=== PATIENT | female | born 1960 | race Caucasian/White ===

== ENCOUNTER → 2021-10-19 | Outpatient (CLI) | payer BC ==
--- NOTE | 2021-10-20 09:39 | MM ---
Reason for exam: screening (asymptomatic). Last mammogram was performed 1 year and 2 months ago. History: Patient is postmenopausal. Physical Findings: A clinical breast exam by your physician is recommended on an annual basis and results should be correlated with mammographic findings. MG 3D Screening Mammo W/Cad Bilateral CC and MLO view(s) were taken. Prior study comparison: August 30, 2020, mammogram, performed at [place]. August 22, 2019, mammogram, performed at [place]. Stable calcifications in the left breast. No significant changes when compared with prior studies. ASSESSMENT: Benign, BI-RAD 2 RECOMMENDATION: Routine screening mammogram of both breasts in 1 year.
== END | disposition home or self-care (01) ==
LOC: RADMAMWWP 08:53
PROVIDERS: ATTEND Family Medicine
DX: Z12.31 Encounter for screening mammogram for malignant neoplasm of breast (principal); Z78.0 Asymptomatic menopausal state
CPT/HCPCS: 77063; 77067

== ENCOUNTER 2022-08-08 14:34 | Inpatient (IN) | payer BC ==
[2022-08-08 15:18] LABS: Appearance,Urine Clear (Clear); Bilirubin,Urine Negative (Negative); Blood,Urine Small (Negative); Color,Urine Colorless; Glucose,Urine (UA) Negative (Negative); Ketones,Urine Negative (Negative); Leukocyte Esterase,Urine Small (Negative); Nitrite,Urine Negative (Negative); Protein,Urine Negative (Negative); RBC,Urine 1 /hpf (0-5); Specific Gravity,Urine 1.002 (1.001-1.035); Squamous Epithelial Cell,Urine 1 /hpf (0-4); Urobilinogen,Urine <2.0 mg/dL (<2.0); WBC,Urine 4 /hpf (0-5)
[2022-08-08 15:24] LABS: HCT 36.9 % (34.0-46.0); HGB 13.3 gm/dL (11.4-16.0); MCH 30.9 pg (25.0-35.0); MCHC 35.9 g/dL (31.0-37.0); Mean Platelet Volume 7.6; Platelet Count 249 k/uL (150-450); RBC 4.29 m/uL (3.80-5.40); RDW 11.7 % (11.5-15.5); WBC 6.6 k/uL (3.8-10.6)
[2022-08-08 15:27] LABS: ALT 22 U/L (4-34); AST 26 U/L (14-36); African American GFR (CKD) >90 (>60 ml/min/1.73 sqM); Albumin 4.6 g/dL (3.5-5.0); Alkaline Phosphatase 78 U/L (38-126); Amylase 41 U/L (30-110); Anion Gap 8 mmol/L; Blood Urea Nitrogen 9 mg/dL (7-17); Calcium 9.3 mg/dL (8.4-10.2); Carbon Dioxide 31 mmol/L (22-30); Chloride 100 mmol/L (98-107); Glucose 119 mg/dL (74-99); Lipase 46 U/L (23-300); Non-African American GFR(CKD) >90 (>60 ml/min/1.73 sqM); Potassium 4.4 mmol/L (3.5-5.1); Sodium 139 mmol/L (137-145); Total Bilirubin 0.9 mg/dL (0.2-1.3); Total Protein 7.7 g/dL (6.3-8.2)
[2022-08-08 15:37] LABS: Basophils # (M) 0.07 k/uL (0-0.2); Eosinophils # (M) 0.13 k/uL (0-0.7); Lymphocytes # (M) 1.65 k/uL (1.0-4.8); Monocytes # (M) 0.46 k/uL (0-1.0); Neutrophils # (M) 4.29 k/uL (1.3-7.7); Neutrophils % (M) 65 %; Nucleated Red Blood Cells 0 /100 WBC (0-0); Total Cells Counted 100
[2022-08-08] MEDS ORDERED: SODIUM CHLORIDE 0.9% 1,000 ML IV STA (17:22)
[2022-08-08] MEDS ORDERED: KETOROLAC 15 MG/ML 1 ML VIAL IVP STA (17:26)
[2022-08-08] MEDS ORDERED: ONDANSETRON 4 MG/2 ML VIAL IVP STA (17:28)
--- NOTE | 2022-08-08 18:51 | CT ---
EXAMINATION TYPE: CT abdomen pelvis w con DATE OF EXAM: 08/08/2022 COMPARISON: None HISTORY: RLQ pain, fever CT DLP: 894.6 mGycm Automated exposure control for dose reduction was used. CONTRAST: Performed with IV Contrast, patient injected with 100ML mL of Isovue 370. Images obtained from the diaphragm to the floor the pelvis with the IV contrast. The lung bases show some mild atelectasis. Heart is slightly enlarged. There is small pericardial eff usion. There are scattered cysts in the liver that measure up to 1.5 cm. There are clips from cholecystectom y. Spleen and stomach pancreas appear intact. The bile duct are not dilated. There is no adrenal mass. Kidneys show satisfactory contrast opacification. No hydronephrosis. Ureter s are not dilated. No retroperitoneal adenopathy. The bladder distends smoothly. No inguinal hernia. There is small amount of low-density fluid in the pelvis. There is some fat stranding in the right lo wer quadrant. There is possible extraluminal air associated with the fat stranding inferior to the ce cum. This could be a 1.5 cm abscess related to appendicitis. The lumbar vertebral appear intact. There is some spondylotic changes with L to 3 disc space narrowin g and vacuum disc. No compression fracture. The bony pelvis is intact. The hip joints are intact. IMPRESSION: Inflammatory changes in the right lower quadrant and I suspect appendicitis with rupture and abscess formation. Small amount of free fluid in the pelvis.
[2022-08-08] MEDS ORDERED: PIPERACILLIN-TAZOBACTAM 3.375 GM in SODIUM CHLORIDE 0.9% 100 ML IVPB STA (18:55)
[2022-08-08] MEDS ORDERED: ONDANSETRON 4 MG/2 ML VIAL IVP PRN ×2 (19:23→21:46)
[2022-08-08] MEDS ORDERED: NALOXONE 0.4 MG/ML 1 ML VIAL IV PRN (19:23)
[2022-08-08] MEDS ORDERED: ACETAMINOPHEN TAB 325 MG TAB PO PRN (19:23)
--- NOTE | 2022-08-08 19:26 | ED ---
Abdominal Pain HPI - General Chief Complaint: Abdominal Pain Stated Complaint: ABD Pain,Fever Time Seen by Provider: 08/08/22 16:23 Source: patient Mode of arrival: ambulatory Limitations: no limitations - History of Present Illness Initial Comments: Patient is a 61-year-old female with a past medical history of hypertension, hyperlipidemia, cholecystectomy, and hysterectomy who presents to the emergency department with a chief complaint abdominal pain. Patient states abdominal pain started in the right lower quadrant. There is no radiation. It is associated with nausea and lack of appetite. Patient states she just recently had the flu therefore she thought she was recovering from that illness. On Sunday she developed a low-grade fever at 99.0F which has been consistent. She denies vomiting, burning with urination, blood in urine, trouble urinating, diarrhea. Last bowel movement was this morning which patient states was normal, nonbloody. - Related Data Home Medications Medication Instructions Recorded Confirmed Atorvastatin Calcium [Lipitor] 80 mg PO HS 08/08/22 08/08/22 Levothyroxine Sodium [Synthroid] 88 mcg PO DAILY 08/08/22 08/08/22 Losartan Potassium [Cozaar] 25 mg PO DAILY 08/08/22 08/08/22 Propranolol HCl 80 mg PO DAILY 08/08/22 08/08/22 amLODIPine [Norvasc] 5 mg PO DAILY 08/08/22 08/08/22 Allergies Allergy/AdvReac Type Severity Reaction Status Date / Time Sulfa (Sulfonamide Allergy Rash/Hives Verified 08/08/22 19:31 Antibiotics) morphine AdvReac Nausea & Verified 08/08/22 19:31 Vomiting Review of Systems ROS Statement: Those systems with pertinent positive or pertinent negative responses have been documented in the HPI. ROS Other: All systems not noted in ROS Statement are negative. Past Medical History Past Medical History: Hyperlipidemia, Hypertension, Thyroid Disorder History of Any Multi-Drug Resistant Organisms: None Reported Past Surgical History: Cholecystectomy, Hysterectomy, Tonsillectomy Past Psychological History: No Psychological Hx Reported Smoking Status: Never smoker Past Alcohol Use History: Occasional Past Drug Use History: None Reported General Exam Limitations: no limitations General appearance: alert, in no apparent distress Eye exam: Present: normal appearance, PERRL, EOMI. Absent: scleral icterus, conjunctival injection, periorbital swelling Respiratory exam: Present: normal lung sounds bilaterally. Absent: respiratory distress, wheezes, rales, rhonchi, stridor Cardiovascular Exam: Present: regular rate, normal rhythm, normal heart sounds. Absent: systolic murmur, diastolic murmur, rubs, gallop, clicks GI/Abdominal exam: Present: soft, tenderness (RLQ), rebound (RLQ), normal bowel sounds. Absent: distended, guarding, rigid Neurological exam: Present: alert, oriented X3, CN II-XII intact Psychiatric exam: Present: normal affect, normal mood Skin exam: Present: warm, dry, intact, normal color. Absent: rash Course Vital Signs 08/08/22 08/08/22 08/08/22 14:43 17:44 19:50 Temperature 98.8 F 98.3 F Pulse Rate 75 69 71 Respiratory 14 18 18 Rate Blood Pressure 146/87 129/82 143/86 O2 Sat by Pulse 96 96 96 Oximetry Medical Decision Making - Medical Decision Making This is a 61-year-old female presenting with abdominal pain and nausea. Patient well-appearing and in no apparent distress. Afebrile. There is tenderness in the right lower quadrant without rigidity or guarding. Laboratory studies obtained. There is no leukocytosis. Other laboratory studies are relatively unremarkable. CT of the abdomen and pelvis was obtained and interpreted by me which shows inflammatory changes in the right lower quadrant consistent with appendicitis with rupture and abscess formation. Pain and nausea controlled. Blood cultures pending. Zosyn given. Case discussed with Dr. Walker who accepts admission.. Patient is NPO. She is agr eeable to admission and admitted in stable condition. Dr. Vieira is my attending - Lab Data Result diagrams: 08/08/22 15:01 08/08/22 15:01 Lab Results 08/08/22 08/08/22 08/08/22 Range/Units 15: 15:01 15:01 WBC 6.6 (3.8-10.6) k/uL RBC 4.29 (3.80-5.40) m/uL Hgb 13.3 (11.4-16.0) gm/dL Hct 36.9 (34.0-46.0) % MCV 86.0 (80.0-100.0) fL MCH 30.9 (25.0-35.0) pg MCHC 35.9 (31.0-37.0) g/dL RDW 11.7 (11.5-15.5) % Plt Count 249 (150-450) k/uL MPV 7.6 Neutrophils % (Manual) 65 % Lymphocytes % (Manual) 25 % Monocytes % (Manual) 7 % Eosinophils % (Manual) 2 % Basophils % (Manual) 1 % Neutrophils # (Manual) 4.29 (1.3-7.7) k/uL Lymphocytes # (Manual) 1.65 (1.0-4.8) k/uL Monocytes # (Manual) 0.46 (0-1.0) k/uL Eosinophils # (Manual) 0.13 (0-0.7) k/uL Basophils # (Manual) 0.07 (0-0.2) k/uL Nucleated RBCs 0 (0-0) /100 WBC Manual Slide Review Performed Sodium 139 (137-145) mmol/L Potassium 4.4 (3.5-5.1) mmol/L Chloride 100 (98-107) mmol/L Carbon Dioxide 31 H (22-30) mmol/L Anion Gap 8 mmol/L BUN 9 (7-17) mg/dL Creatinine 0.67 (0.52-1.04) mg/dL Est GFR (CKD-EPI)AfAm >90 (>60 ml/min/1.73 sqM) Est GFR (CKD-EPI)NonAf >90 (>60 ml/min/1.73 sqM) Glucose 119 H (74-99) mg/dL Calcium 9.3 (8.4-10.2) mg/dL Total Bilirubin 0.9 (0.2-1.3) mg/dL AST 26 (14-36) U/L ALT 22 (4-34) U/L Alkaline Phosphatase 78 (38-126) U/L Total Protein 7.7 (6.3-8.2) g/dL Albumin 4.6 (3.5-5.0) g/dL Amylase 41 (30-110) U/L Lipase 46 (23-300) U/L Urine Color Colorless Urine Appearance Clear (Clear) Urine pH 7.0 (5.0-8.0) Ur Specific [place] 1.002 (1.001-1.035) Urine Protein Negative (Negative) Urine Glucose (UA) Negative (Negative) Urine Ketones Negative (Negative) Urine Blood Small H (Negative) Urine Nitrite Negative (Negative) Urine Bilirubin Negative (Negative) Urine Urobilinogen <2.0 (<2.0) mg/dL Ur Leukocyte Esterase Small H (Negative) Urine RBC 1 (0-5) /hpf Urine WBC 4 (0-5) /hpf Ur Squamous Epith Cells 1 (0-4) /hpf Coronavirus (PCR) (Not Detectd) Influenza Type A RNA (Not Detectd) Influenza Type B (PCR) (Not Detectd) 08/08/22 08/08/22 Range/Units 17:54 17:54 WBC (3.8-10.6) k/uL RBC (3.80-5.40) m/uL Hgb (11.4-16.0) gm/dL Hct (34.0-46.0) % MCV (80.0-100.0) fL MCH (25.0-35.0) pg MCHC (31.0-37.0) g/dL RDW (11.5-15.5) % Plt Count (150-450) k/uL MPV Neutrophils % (Manual) % Lymphocytes % (Manual) % Monocytes % (Manual) % Eosinophils % (Manual) % Basophils % (Manual) % Neutrophils # (Manual) (1.3-7.7) k/uL Lymphocytes # (Manual) (1.0-4.8) k/uL Monocytes # (Manual) (0-1.0) k/uL Eosinophils # (Manual) (0-0.7) k/uL Basophils # (Manual) (0-0.2) k/uL Nucleated RBCs (0-0) /100 WBC Manual Slide Review Sodium (137-145) mmol/L Potassium (3.5-5.1) mmol/L Chloride (98-107) mmol/L Carbon Dioxide (22-30) mmol/L Anion Gap mmol/L BUN (7-17) mg/dL Creatinine (0.52-1.04) mg/dL Est GFR (CKD-EPI)AfAm (>60 ml/min/1.73 sqM) Est GFR (CKD-EPI)NonAf (>60 ml/min/1.73 sqM) Glucose (74-99) mg/dL Calcium (8.4-10.2) mg/dL Total Bilirubin (0.2-1.3) mg/dL AST (14-36) U/L ALT (4-34) U/L Alkaline Phosphatase (38-126) U/L Total Protein (6.3-8.2) g/dL Albumin (3.5-5.0) g/dL Amylase (30-110) U/L Lipase (23-300) U/L Urine Color Urine Appearance (Clear) Urine pH (5.0-8.0) Ur Specific [place] (1.001-1.035) Urine Protein (Negative) Urine Glucose (UA) (Negative) Urine Ketones (Negative) Urine Blood (Negative) Urine Nitrite (Negative) Urine Bilirubin (Negative) Urine Urobilinogen (<2.0) mg/dL Ur Leukocyte Esterase (Negative) Urine RBC (0-5) /hpf Urine WBC (0-5) /hpf Ur Squamous Epith Cells (0-4) /hpf Coronavirus (PCR) Not Detected (Not Detectd) Influenza Type A RNA Not Detected (Not Detectd) Influenza Type B (PCR) Not Detected (Not Detectd) Disposition Clinical Impression: RLQ abdominal pain, Nausea, Decreased appetite, Appendicitis Disposition: ADMITTED IP TO THIS [facility] Condition: Fair Decision Time: 19:25
[2022-08-08] MEDS ORDERED: KETOROLAC 15 MG/ML 1 ML VIAL ONE (20:35)
[2022-08-08] MEDS ORDERED: ROCURONIUM 10 MG/ML (5 ML VIAL) IV ONE (20:35)
[2022-08-08] MEDS ORDERED: PHENYLEPHRINE-0.9% NACL SYG 1,000 MCG/10 ML SYRINGE ONE (20:35)
[2022-08-08] MEDS ORDERED: ONDANSETRON 4 MG/2 ML VIAL ONE (20:35)
[2022-08-08] MEDS ORDERED: LACTATED RINGERS 1,000 ML IV ONE (20:35)
[2022-08-08] MEDS ORDERED: diphenhydrAMINE 50 MG/ML 1 ML VIAL ONE (20:35)
[2022-08-08] MEDS ORDERED: PROPOFOL 10 MG/ML 20 ML VIAL IV ONE (20:35)
[2022-08-08] MEDS ORDERED: fentaNYL (PF) 50 MCG/ML 2 ML AMP ONE (20:35)
[2022-08-08] MEDS ORDERED: GLYCOPYRROLATE 0.2 MG/ML 2 ML VIAL ONE (20:35)
[2022-08-08] MEDS ORDERED: SUCCINYLCHOLINE CHLORIDE 200 MG/10 ML VIAL IV ONE (20:35)
[2022-08-08] MEDS ORDERED: DEXAMETHASONE SOD PHOS (MDV) 100 MG/10 ML VIAL ONE (20:35)
[2022-08-08] MEDS ORDERED: NEOSTIGMINE 1 MG/ML 10 ML VIAL ONE (20:35)
[2022-08-08] MEDS ORDERED: MIDAZOLAM 2 MG/2 ML VIAL ONE (20:35)
--- NOTE | 2022-08-08 20:42 | P.GSHP ---
History of Present Illness H&P Date: 08/08/22 Chief Complaint: Right lower quadrant pain 61-year-old female came to the hospital today from her doctor's office. Complaining of right lower quadrant pain and fevers that started last . Pain gradually increasing. Appetite is diminished. No history of similar raymundo nts. White blood cell count is normal. CT shows inflammatory changes in the right lower quadrant adjacent to the mid to distal aspect of the appendix with suspected abscess and air. - Review of Systems Comment: The patient denies any acute changes in vision or hearing, no dysphagia or odynophagia, no chest pain or shortness of breath, no dysuria or hematuria, no headache, no runny nose, no rectal bleeding or melena, no unexplained weight loss Past Medical History Past Medical History: Hyperlipidemia, Hypertension, Thyroid Disorder History of Any Multi-Drug Resistant Organisms: None Reported Past Surgical History: Cholecystectomy, Hysterectomy, Tonsillectomy Past Psychological History: No Psychological Hx Reported Smoking Status: Never smoker Past Alcohol Use History: Occasional Past Drug Use History: None Reported Medications and Allergies Home Medications Medication Instructions Recorded Confirmed Type Atorvastatin Calcium [Lipitor] 80 mg PO HS 08/08/22 08/08/22 History Levothyroxine Sodium [Synthroid] 88 mcg PO DAILY 08/08/22 08/08/22 History Losartan Potassium [Cozaar] 25 mg PO DAILY 08/08/22 08/08/22 History Propranolol HCl 80 mg PO DAILY 08/08/22 08/08/22 History amLODIPine [Norvasc] 5 mg PO DAILY 08/08/22 08/08/22 History Allergies Allergy/AdvReac Type Severity Reaction Status Date / Time Sulfa (Sulfonamide Allergy Rash/Hives Verified 08/08/22 19:31 Antibiotics) morphine AdvReac Nausea & Verified 08/08/22 19:31 Vomiting Surgical - Exam Vital Signs Temp Pulse Resp BP Pulse Ox 98.8 F 75 14 146/87 96 08/08/22 14:43 08/08/22 14:43 08/08/22 14:43 08/08/22 14:43 08/08/22 14:43 Physical exam: General: Well-developed, well-nourished HEENT: Normocephalic, sclerae nonicteric Abdomen: Right lower quadrant tenderness, nondistended Extremities: No edema Neuro: Alert and oriented Results - Labs 08/08/22 15:01 08/08/22 15:01 Abnormal Lab Results - Last 24 Hours (Table) 08/08/22 08/08/22 Range/Units 15:01 15:01 Carbon Dioxide 31 H (22-30) mmol/L Glucose 119 H (74-99) mg/dL Urine Blood Small H (Negative) Ur Leukocyte Esterase Small H (Negative) Diabetes panel 08/08/22 Range/Units 15:01 Sodium 139 (137-145) mmol/L Potassium 4.4 (3.5-5.1) mmol/L Chloride 100 (98-107) mmol/L Carbon Dioxide 31 H (22-30) mmol/L BUN 9 (7-17) mg/dL Creatinine 0.67 (0.52-1.04) mg/dL Glucose 119 H (74-99) mg/dL Calcium 9.3 (8.4-10.2) mg/dL AST 26 (14-36) U/L ALT 22 (4-34) U/L Alkaline Phosphatase 78 (38-126) U/L Total Protein 7.7 (6.3-8.2) g/dL Albumin 4.6 (3.5-5.0) g/dL Calcium panel 08/08/22 Range/Units 15:01 Calcium 9.3 (8.4-10.2) mg/dL Albumin 4.6 (3.5-5.0) g/dL Pituitary panel 08/08/22 Range/Units 15:01 Sodium 139 (137-145) mmol/L Potassium 4.4 (3.5-5.1) mmol/L Chloride 100 (98-107) mmol/L Carbon Dioxide 31 H (22-30) mmol/L BUN 9 (7-17) mg/dL Creatinine 0.67 (0.52-1.04) mg/dL Glucose 119 H (74-99) mg/dL Calcium 9.3 (8.4-10.2) mg/dL Adrenal panel 08/08/22 Range/Units 15:01 Sodium 139 (137-145) mmol/L Potassium 4.4 (3.5-5.1) mmol/L Chloride 100 (98-107) mmol/L Carbon Dioxide 31 H (22-30) mmol/L BUN 9 (7-17) mg/dL Creatinine 0.67 (0.52-1.04) mg/dL Glucose 119 H (74-99) mg/dL Calcium 9.3 (8.4-10.2) mg/dL Total Bilirubin 0.9 (0.2-1.3) mg/dL AST 26 (14-36) U/L ALT 22 (4-34) U/L Alkaline Phosphatase 78 (38-126) U/L Total Protein 7.7 (6.3-8.2) g/dL Albumin 4.6 (3.5-5.0) g/dL Assessment and Plan (1) Appendicitis Narrative/Plan: 61-year-old female with suspected ruptured appendicitis. Options and clinical scenario reviewed in detail with the patient. We'll proceed with laparoscopic, possible open appendectomy at this time. Risks of bleeding, infection, conversion to an open procedure, possible need for bowel resection, bladder bowel and ureteral injury, recurrent abscess, wound infection, hernia. Patient understands and wishes to proceed. Current Visit: Yes Status: Acute Code(s): K37 - UNSPECIFIED APPENDICITIS SNOMED Code(s): 50348020
[2022-08-08] MEDS ORDERED: BUPIVACAINE (PF) 0.25% 30 ML VIAL SQ ONE ×2 (20:59)
--- NOTE | 2022-08-08 22:06 | P.OP ---
Date of Procedure: 08/08/22 Procedure(s) Performed: PREOPERATIVE DIAGNOSIS: Acute appendicitis POSTOPERATIVE DIAGNOSIS: Acute ruptured appendicitis with abscess PROCEDURE: Laparoscopic appendectomy SURGEON: Denise EBL: 5 mL ANESTHESIA: General COMPLICATIONS: None OPERATIVE PROCEDURE: The patient was brought and placed on the operating table in the supine position. The patient was placed under general anesthesia. The abdomen was prepped and draped in the usual sterile fashion. A small curvilinear supraumbilical incision was made. The fascia was retracted anteriorly with [place] forceps. The Veress needle was advanced into the peritoneal cavity. The saline drop test was normal. Insufflation took place to 15 mmHg. A 5 mm trocar was then placed. An additional 5 mm suprapubic trocar was placed under direct visualization as well as a 12 mm left lower quadrant trocar under direct visualization. The terminal ileum was adherent to the right pelvic sidewall. Blunt dissection took place and a purulent cavity was entered and evacuated. There was another loop of small bowel that was also adherent to this area and the abscess cavity was between the 2 loops of small bowel and the pelvic sidewall. Once I bluntly mobilize the structures away from one another the bowel was inspected. I could not visualize any fistulous communication between the appendix and the small bowel. The base of the appendix was divided using a linear white load stapler. The mesoappendix was divided using the LigaSure device. No bleeding was seen. The area was irrigated. No blood or purulence was seen. A drain was placed in the right lower quadrant through the suprapubic site. This was sutured in place using a 3-0 silk stitch. The a ppendix was removed using an Endo Catch bag. The fascia at the 12 mm site was closed using a [] 0 Vicryl stitch. The skin at all 3 sites was closed using 4-0 Monocryl sutures. Skin glue was then applied. DISPOSITION: Stable to recovery room
[2022-08-08] MEDS: LACTATED RINGERS 1,000 ML IV SCH (22:29)
[2022-08-08] MEDS: HYDROmorphone 1 MG/ML 1 ML SYRINGE IVP PRN (22:43)
[2022-08-08] MEDS: HEPARIN SODIUM,PORCINE/PF 5,000 UNIT/0.5 ML SYRINGE SQ SCH (23:58)
[2022-08-08] MEDS: KETOROLAC 15 MG/ML 1 ML VIAL IVP SCH (23:59)
[2022-08-09] MEDS: HYDROmorphone 1 MG/ML 1 ML SYRINGE IVP PRN ×2 (02:50→09:46)
[2022-08-09] MEDS: KETOROLAC 15 MG/ML 1 ML VIAL IVP SCH ×3 (05:43→18:22)
[2022-08-09] MEDS: LEVOTHYROXINE 88 MCG TAB PO SCH (06:42)
[2022-08-09] MEDS ORDERED: HYDROmorphone 0.5 MG/0.5 ML SYRINGE IVP PRN (07:00)
[2022-08-09] MEDS: PANTOPRAZOLE 40 MG/10 ML VIAL IV SCH (08:49)
[2022-08-09] MEDS ORDERED: IPRATROPIUM-ALBUTEROL 3 ML NEB INHALATION PRN (08:49)
[2022-08-09] MEDS: LOSARTAN 25 MG TAB PO SCH (08:49)
[2022-08-09] MEDS: PIPERACILLIN-TAZOBACTAM 3.375 GM in SODIUM CHLORIDE 0.9% 100 ML IVPB SCH ×2 (08:49→16:15)
[2022-08-09] MEDS: PROPRANOLOL 40 MG TAB PO SCH (08:49)
[2022-08-09] MEDS: HEPARIN SODIUM,PORCINE/PF 5,000 UNIT/0.5 ML SYRINGE SQ SCH ×2 (08:50→16:15)
[2022-08-09] MEDS ORDERED: amLODIPine 5 MG TAB PO SCH (09:00)
--- NOTE | 2022-08-09 09:41 | XR ---
EXAMINATION TYPE: XR chest 2V DATE OF EXAM: 08/09/2022 COMPARISON: NONE TECHNIQUE: PA and lateral views submitted. HISTORY: Hypoxia FINDINGS: Heart size mildly prominent there is right perihilar and left lower lobe subsegmental areas of consol idation. No interstitial edema or pneumothorax. Limited inspiration. Hypertrophic changes of the spin e. Surgical clips seen in the abdomen. IMPRESSION: 1. Right perihilar and lower lobe infiltrate or atelectasis correlate clinically.
[2022-08-09] MEDS: IPRATROPIUM-ALBUTEROL 3 ML NEB INHALATION SCH ×3 (11:24→19:36)
[2022-08-09 11:30] LABS: Basophils # (A) 0.01 X 10*3/uL (0.00-0.10); Basophils % (A) 0.1 %; Eosinophils # (A) 0 X 10*3/uL (0.04-0.35); Eosinophils % (A) 0 %; HGB 12.5 g/dL (12.0-15.0); Immature Grans, Automated 0.4 %; Lymphocytes # (A) 0.67 X 10*3/uL (0.90-5.00); Lymphocytes % (A) 6.1 %; MCH 29.5 pg (27.0-32.0); MCHC 33.8 g/dL (32.0-37.0); MCV 87.3 fL (80.0-97.0); Mean Platelet Volume 9.6 fL (9.5-12.2); Monocytes # (A) 0.35 X 10*3/uL (0.20-1.00); Monocytes % (A) 3.2 %; NRBC Per 100 WBC 0 /100 WBCS (0.0-0.0); Neutrophils # (A) 9.94 X 10*3/uL (1.80-7.70); Neutrophils % (A) 90.2 %; Platelet Count 244 X 10*3/uL (140-440); RBC 4.24 X 10*6/uL (4.10-5.20); RDW 11.7 % (11.5-14.5); WBC 11.01 X 10*3/uL (4.50-10.00)
[2022-08-09] MEDS: metroNIDAZOLE-NS PMX 500 MG in SALINE 1 100ML.BAG IVPB SCH ×2 (12:26→20:31)
[2022-08-09] MEDS: SODIUM CHLORIDE 0.9% 1,000 ML IV SCH ×3 (12:28→20:33)
--- NOTE | 2022-08-09 12:47 | P.PN ---
Subjective Progress Note Date: 08/09/22 CHIEF COMPLAINT: Acute ruptured appendicitis with abscess HISTORY OF PRESENT ILLNESS: Patient is status post laparoscopic appendectomy. Postop day #1. Patient does complain of abdominal pain. She may have gone too long in getting pain medication. On she did have some nausea earlier that has resolved. No vomiting. No flatus. Afebrile. She is on 3 L standing and 95%. She denies any cough or shortness of breath. Chest x-ray right perihilar and lower lobe infiltrate or atelectasis. WBC is up at 11.01 Hgb 12.5 platelets of 244 patient had 40 mL output through the night and 20 mL output this morning PHYSICAL EXAM: VITAL SIGNS: Reviewed. GENERAL: Well-developed in no acute distress. HEENT: No sclera icterus. Extraocular movements grossly intact. Moist buccal mucosa. Head is atraumatic, normocephalic. ABDOMEN: Soft. Nondistended. Nontender. CHRISTIANNE drain with serosanguineous output NEUROLOGIC: Alert and oriented. Cranial nerves II through XII grossly intact. ASSESSMENT: 1. Acute ruptured appendicitis with abscess status post laparoscopic cholecystectomy appendectomy 2. Atelectasis PLAN: -Continue antibiotics. Flagyl also added -Encouraged patient ambulate -Encouraged patient to use incentive spirometry -Continue pain management -Continue IV fluids -Continue clear liquid diet -repeat CBC in a.m. -GI prophylaxis Protonix and DVT prophylaxis subcu heparin Physician Corporate Legal Intern note has been reviewed by physician. Signing provider agrees with the documented findings, assessment, and plan of care. I have personally seen and examined the patient, reviewed the TRAINING AND DOCUMENTATION SPECIALIST /PAs history, exam and MDM and agree with the assessment and plan as written. Based on total visit time, I have performed more than 50% of the visit. As above: Patient doing better today. Says her pain is improved. CHRISTIANNE drain serosanguineous. Continue IV antibiotics. Advance diet as tolerated. Objective - Vital Signs Vital signs: Vital Signs Temp 98.1 F 08/09/22 08:00 Pulse 74 08/09/22 11:32 Resp 16 08/09/22 08:00 BP 116/72 08/09/22 08:00 Pulse Ox 95 08/09/22 08:00 FiO2 Intake & Output 08/08/22 08/09/22 08/09/22 18:59 06:59 18:59 Intake Total 800 Output Total 45 20 Balance 755 -20 Weight 76.204 kg 76.204 kg Intake: IV 800 Output: Drainage 40 20 Abdomen 40 20 Estimated Blood Loss 5 Other: Voiding Method Toilet Toilet # Voids 1 - Labs CBC & Chem 7: 08/09/22 05:34 08/08/22 15:01 Labs: Abnormal Lab Results - Last 24 Hours (Table) 08/08/22 08/08/22 08/09/22 Range/Units 15:01 15:01 05:34 WBC 11.01 H (4.50-10.00) X 10*3/uL Hct 37.0 L (37.2-46.3) % Neutrophils # 9.94 H (1.80-7.70) X 10*3/uL Lymphocytes # 0.67 L (0.90-5.00) X 10*3/uL Eosinophils # 0 L (0.04-0.35) X 10*3/uL Carbon Dioxide 31 H (22-30) mmol/L Glucose 119 H (74-99) mg/dL Urine Blood Small H (Negative) Ur Leukocyte Esterase Small H (Negative)
[2022-08-09 13:50] VITALS: BMI 29.7
--- NOTE | 2022-08-09 15:05 | P.CONS ---
History of Present Illness - Reason for Consult Consult date: 08/09/22 Medical management hypertension, hypothyroidism,h Requesting physician: Elliot Walker - Chief Complaint Right lower quadrant pain, low-grade fevers - History of Present Illness This 61-year-old female admitted with acute ruptured appendicitis with abscess status post laparoscopic appendectomy, postop day #1. 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 Patient does not wear oxygen at home, postop O2 requirements increased to 3 L nasal cannula. Chest x-ray performed reporting right perihilar and lower lobe infiltrate or atelectasis. Tate virus, influenza tyoe A and B not detected. Blood cultures in progress.Afebrile, WBC increased to 11.01 today, maintained on Zosyn and Flagyl. Maintained on IV fluid hydration, subcu heparin for DVT p rophylaxis, PPI for GI prophylaxis. Currently reports positive pain, had skipped her pain medication earlier. Patient has been up to the bathroom, tolerated exertion well. Denies chest pain, palpitations or increased shortness of breath. Incentive spirometer ordered, not yet at bedside. Review of Systems ROS Statement: Those systems with pertinent positive or pertinent negative responses have been documented in the HPI. ROS Other: All systems not noted in ROS Statement are negative. Past Medical History Past Medical History: Hyperlipidemia, Hypertension, Thyroid Disorder History of Any Multi-Drug Resistant Organisms: None Reported Past Surgical History: Cholecystectomy, Hysterectomy, Tonsillectomy Past Anesthesia/Blood Transfusion Reactions: No Reported Reaction Past Psychological History: No Psychological Hx Reported Smoking Status: Former smoker Past Alcohol Use History: Occasional Past Drug Use History: None Reported Medications and Allergies Home Medications Medication Instructions Recorded Confirmed Type Atorvastatin Calcium [Lipitor] 80 mg PO HS 08/08/22 08/08/22 History Levothyroxine Sodium [Synthroid] 88 mcg PO DAILY 08/08/22 08/08/22 History Losartan Potassium [Cozaar] 25 mg PO DAILY 08/08/22 08/08/22 History Propranolol HCl 80 mg PO DAILY 08/08/22 08/08/22 History amLODIPine [Norvasc] 5 mg PO DAILY 08/08/22 08/08/22 History Allergies Allergy/AdvReac Type Severity Reaction Status Date / Time Sulfa (Sulfonamide Allergy Rash/Hives Verified 08/08/22 19:31 Antibiotics) morphine AdvReac Nausea & Verified 08/08/22 19:31 Vomiting Physical Exam Vitals: Vital Signs Temp Pulse Pulse Pulse Resp BP BP 08/09/22 14:00 97.7 F 56 L 18 100/62 08/09/22 11:32 74 08/09/22 11:25 72 08/09/22 08:00 98.1 F 67 16 116/72 08/09/22 02:00 98.2 F 72 18 106/69 08/09/22 01:55 08/08/22 23:01 69 16 08/08/22 22:38 97.9 F 69 17 130/83 08/08/22 22:19 58 L 16 137/71 08/08/22 22:03 62 16 137/67 08/08/22 21:48 97.5 F L 68 18 121/73 08/08/22 19:50 98.3 F 71 18 143/86 08/08/22 17:44 69 18 129/82 08/08/22 14:43 98.8 F 75 14 146/87 Pulse Ox 08/09/22 14:00 95 08/09/22 11:32 08/09/22 11:25 08/09/22 08:00 95 08/09/22 02:00 91 L 08/09/22 01:55 85 L 08/08/22 23:01 08/08/22 22:38 90 L 08/08/22 22:19 100 08/08/22 22:03 100 08/08/22 21:48 97 08/08/22 19:50 96 08/08/22 17:44 96 08/08/22 14:43 96 Intake and Output 08/08/22 08/09/22 08/09/22 22:59 06:59 14:59 Intake Total 800 Output Total 5 40 20 Balance 795 -40 -20 Intake: IV 800 Output: Drainage 40 20 Abdomen 40 20 Estimated Blood Loss 5 Other: Voiding Method Toilet Toilet # Voids 1 Weight 76.204 kg 76.204 kg PHYSICAL EXAM: VITAL SIGNS: [As above] GENERAL: Sitting up in bed, no acute distress HEENT: Conjunctivae normal. eyes normal. NECK: Supple, No JVD. No thyroid enlargement. No LNs CARDIOVASCULAR: S1, S2 regular.No murmur RESPIRATION: Unlabored, essentially clear to auscultation, bilateral bases diminished.No rhonchi or crackles. No bronchial breathing. ABDOMEN: Soft, status post surgery, laparoscopic dressing sites clean, dry and intact. No guarding. CHRISTIANNE with serosanguineous drainage. LEGS: No edema. no swelling PSYCHIATRY: Alert and oriented X3, mood and affect normal. NERVOUS SYSTEM: Cranial N 2-12 grossly normal. No focal deficits. Strength and sensation grossly intact. Skin: Warm and dry, no rash Results CBC & Chem 7: 08/09/22 05:34 08/08/22 15:01 Labs: Abnormal Lab Results - Last 24 Hours (Table) 08/08/22 08/08/22 08/09/22 Range/Units 15:01 15:01 05:34 WBC 11.01 H (4.50-10.00) X 10*3/uL Hct 37.0 L (37.2-46.3) % Neutrophils # 9.94 H (1.80-7.70) X 10*3/uL Lymphocytes # 0.67 L (0.90-5.00) X 10*3/uL Eosinophils # 0 L (0.04-0.35) X 10*3/uL Carbon Dioxide 31 H (22-30) mmol/L Glucose 119 H (74-99) mg/dL Urine Blood Small H (Negative) Ur Leukocyte Esterase Small H (Negative) Assessment and Plan Assessment: Acute ruptured appendicitis with abscess status post laparoscopic cholecystectomy appendectomy Atelectasis Acute hypoxia secondary to the above Postop leukocytosis, reactive History of PONV Hypertension Hyperlipidemia Hypothyroidism Plan: Continue on current medication regime ,monitoring and symptomatic treatment. Maintain IV fluid hydration, antibiotics. Continue close monitoring of blood cultures. GI and DVT prophylaxis in place. Pain management, diet advancement as per general surgery. Aggressive pulmonary toileting with incentive spirometer reinforced/discussed( not yet at the bedside). Wean O2 as tolerated. Discussed splinting for support, proper body mechanics-rolling to the side prior to sitting up and getting out of bed. This morning blood pressures mildly softer, Norvasc discontinued-close monitoring of blood pressures. The impression and plan of care has been dictated as directed. : I performed a history and examination of this patient, discussed the same with the dictator. I agree with the dictator's note ,documented as a scribe. Any additional findings or plans will be noted.
[2022-08-09] MEDS: HYDROcodone/APAP 5-325MG 1 EACH TAB PO PRN (16:22)
[2022-08-09] MEDS: ATORVASTATIN 80 MG TAB PO SCH (20:30)
[2022-08-09] MEDS: LACTATED RINGERS 1,000 ML IV SCH (20:33)
[2022-08-10] MEDS: HEPARIN SODIUM,PORCINE/PF 5,000 UNIT/0.5 ML SYRINGE SQ SCH ×3 (00:15→17:17)
[2022-08-10] MEDS: KETOROLAC 15 MG/ML 1 ML VIAL IVP SCH ×4 (00:15→17:17)
[2022-08-10] MEDS: PIPERACILLIN-TAZOBACTAM 3.375 GM in SODIUM CHLORIDE 0.9% 100 ML IVPB SCH ×3 (00:15→17:19)
[2022-08-10] MEDS: HYDROmorphone 1 MG/ML 1 ML SYRINGE IVP PRN (02:53)
[2022-08-10] MEDS: metroNIDAZOLE-NS PMX 500 MG in SALINE 1 100ML.BAG IVPB SCH ×3 (04:39→20:53)
[2022-08-10] MEDS: LEVOTHYROXINE 88 MCG TAB PO SCH (06:16)
[2022-08-10] MEDS: IPRATROPIUM-ALBUTEROL 3 ML NEB INHALATION SCH ×4 (07:19→20:32)
[2022-08-10 08:57] LABS: Basophils # (A) 0.01 X 10*3/uL (0.00-0.10); Basophils % (A) 0.1 %; Eosinophils # (A) 0.01 X 10*3/uL (0.04-0.35); Eosinophils % (A) 0.1 %; HCT 32.6 % (37.2-46.3); HGB 10.9 g/dL (12.0-15.0); Immature Grans, Automated 0.6 %; Lymphocytes # (A) 1.32 X 10*3/uL (0.90-5.00); Lymphocytes % (A) 16.7 %; MCH 29.2 pg (27.0-32.0); MCHC 33.4 g/dL (32.0-37.0); MCV 87.4 fL (80.0-97.0); Mean Platelet Volume 9.5 fL (9.5-12.2); Monocytes # (A) 0.47 X 10*3/uL (0.20-1.00); NRBC Per 100 WBC 0 /100 WBCS (0.0-0.0); Neutrophils # (A) 6.03 X 10*3/uL (1.80-7.70); Neutrophils % (A) 76.5 %; Platelet Count 239 X 10*3/uL (140-440); RBC 3.73 X 10*6/uL (4.10-5.20); RDW 11.6 % (11.5-14.5); WBC 7.89 X 10*3/uL (4.50-10.00)
[2022-08-10 09:21] LABS: African American GFR (CKD) 91.6 (60.0-200.0); Anion Gap 9.3 mmol/L (10.00-18.00); BUN/Creat Ratio 12.5 Ratio (12.00-20.00); Calcium 8.5 mg/dL (8.7-10.3); Carbon Dioxide 25.7 mmol/L (20.0-27.5); Potassium 3.7 mmol/L (3.5-5.5)
[2022-08-10] MEDS: PANTOPRAZOLE 40 MG/10 ML VIAL IV SCH (10:21)
[2022-08-10] MEDS: LOSARTAN 25 MG TAB PO SCH (10:22)
[2022-08-10] MEDS: PROPRANOLOL 40 MG TAB PO SCH (10:22)
--- NOTE | 2022-08-10 12:26 | P.PN ---
Subjective Progress Note Date: 08/10/22 CHIEF COMPLAINT: Acute ruptured appendicitis with abscess HISTORY OF PRESENT ILLNESS: Patient is status post laparoscopic appendectomy. Postop day #2. Patient reports that her abdominal pain is better today. She is having flatus. Denies any nausea or vomiting. She has been up and ambulating in her room. Patient had a full liquid diet for breakfast. Afebrile. Patient is down from 3-2 L oxygen satting at 92% WBC is down from 11-7.89 hemoglobin is 10.9 platelets 239 sodium is 140 potassium is 3.7 creatinine 0.8 PHYSICAL EXAM: VITAL SIGNS: Reviewed. GENERAL: Well-developed in no acute distress. HEENT: No sclera icterus. Extraocular movements grossly intact. Moist buccal mucosa. Head is atraumatic, normocephalic. ABDOMEN: Soft. Nondistended. Tenderness at incision sites more in the right lower quadrant CHRISTIANNE drain with 20 ml serosanguineous output NEUROLOGIC: Alert and oriented. Cranial nerves II through XII grossly intact. ASSESSMENT: 1. Acute ruptured appendicitis with abscess status post laparoscopic cholecystectomy appendectomy 2. Atelectasis PLAN: -Advance diet as tolerated -Continue antibiotics -Consult physical therapy to help ambulate patient -Encouraged patient ambulate -Encouraged patient to use incentive spirometry -Continue pain management -Continue IV fluids -GI prophylaxis Protonix and DVT prophylaxis subcu heparin Physician Wrapping Checker note has been reviewed by physician. Signing provider agrees with the documented findings, assessment, and plan of care. I have personally seen and examined the patient, reviewed the RAILROAD CAR CLEANER /PAs history, exam and MDM and agree with the assessment and plan as written. Based on total visit time, I have performed more than 50% of the visit. As above: Patient doing well today. Mild pain. Tolerating full. No further nausea. Continue gradually advancing diet. Anticipate discharge tomorrow. Follow-up as outpatient. Objective - Vital Signs Vital signs: Vital Signs Temp 97.8 F 08/10/22 08:00 Pulse 70 08/10/22 11:05 Resp 17 08/10/22 08:00 BP 111/67 08/10/22 08:00 Pulse Ox 92 L 08/10/22 08:00 FiO2 Intake & Output 08/09/22 08/10/22 08/10/22 18:59 06:59 18:59 Output Total 20 60 20 Balance -20 -60 -20 Weight 76.204 kg Output: Drainage 20 60 20 Abdomen 20 60 20 Other: Voiding Method Toilet Toilet # Voids 2 2 - Labs CBC & Chem 7: 08/10/22 06:10 08/10/22 06:10 Labs: Abnormal Lab Results - Last 24 Hours (Table) 08/10/22 08/10/22 Range/Units 06:10 06:10 RBC 3.73 L (4.10-5.20) X 10*6/uL Hgb 10.9 L (12.0-15.0) g/dL Hct 32.6 L (37.2-46.3) % Immature Gran # 0.05 H (0.00-0.04) X 10*3/uL Eosinophils # 0.01 L (0.04-0.35) X 10*3/uL Anion Gap 9.30 L (10.00-18.00) mmol/L Glucose 131 H (70-110) mg/dL Calcium 8.5 L (8.7-10.3) mg/dL Microbiology - Last 24 Hours (Table) 08/08/22 19:35 Blood Culture - Preliminary Blood No Growth after 24 hours 08/08/22 19:15 Blood Culture - Preliminary Blood No Growth after 24 hours
--- NOTE | 2022-08-10 13:02 | P.PN ---
Subjective Progress Note Date: 08/10/22 - History of Present Illness 08/09/2022 This 61-year-old female admitted with acute ruptured appendicitis with abscess status post laparoscopic appendectomy, postop day #1. 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 Patient does not wear oxygen at home, postop O2 requirements increased to 3 L nasal cannula. Chest x-ray performed reporting right perihilar and lower lobe infiltrate or atelectasis. Tate virus, influenza tyoe A and B not detected. Blood cultures in progress.Afebrile, WBC increased to 11.01 today, maintained on Zosyn and Flagyl. Maintained on IV fluid hydration, subcu heparin for DVT prophylaxis, PPI for GI prophylaxis. Currently reports positive pain, had skipped her pain medication earlier. Patient has been up to the bathroom, tolerated exertion well. Denies chest pain, palpitations or increased shortness of breath. Incentive spirometer ordered, not yet at bedside. 08/10/2022 continues to do well, passing flatus, no bowel movement. Tolerating full liquids, denies nausea or vomiting, diet advancement in progress. Ambulating in dozier, tolerating exertion well. Pain controlled. Incentive spirometer up to 1500. Oxygen recently weaned off. Afebrile, normal WBC. Hemoglobin 10.9, platelets 239. Electrolytes, renal function stable. Objective - Vital Signs Vital signs: Vital Signs Temp 97.8 F 08/10/22 08:00 Pulse 70 08/10/22 11:05 Resp 17 08/10/22 08:00 BP 111/67 08/10/22 08:00 Pulse Ox 92 L 08/10/22 08:00 FiO2 Intake & Output 08/09/22 08/10/22 08/10/22 18:59 06:59 18:59 Output Total 20 60 20 Balance -20 -60 -20 Weight 76.204 kg Output: Drainage 20 60 20 Abdomen 20 60 20 Other: Voiding Method Toilet Toilet # Voids 2 2 - Exam PHYSICAL EXAM: VITAL SIGNS: [As above] GENERAL: Alert and oriented 3, Sitting up in chair, no acute distress HEENT: Conjunctivae normal. eyes normal. MMM. NECK: Supple, No JVD. CARDIOVASCULAR: S1, S2 regular.No murmur RESPIRATION: Unlabored, essentially clear to auscultation, bilateral bases dimin ished.No rhonchi or crackles. ABDOMEN: Soft, nondistended, status post surgery, laparoscopic sites clean, dry and intact. No guarding. CHRISTIANNE with serosanguineous drainage. LEGS: No edema. no swelling NERVOUS SYSTEM: Cranial N 2-12 grossly normal. No focal deficits. Strength and sensation grossly intact. Skin: Warm and dry, no rash Microbiology 08/08/22 19:35 Blood Blood Culture - Preliminary No Growth after 24 hours 08/08/22 19:15 Blood Blood Culture - Preliminary No Growth after 24 hours - Labs CBC & Chem 7: 08/10/22 06:10 08/10/22 06:10 Labs: Abnormal Lab Results - Last 24 Hours (Table) 08/10/22 08/10/22 Range/Units 06:10 06:10 RBC 3.73 L (4.10-5.20) X 10*6/uL Hgb 10.9 L (12.0-15.0) g/dL Hct 32.6 L (37.2-46.3) % Immature Gran # 0.05 H (0.00-0.04) X 10*3/uL Eosinophils # 0.01 L (0.04-0.35) X 10*3/uL Anion Gap 9.30 L (10.00-18.00) mmol/L Glucose 131 H (70-110) mg/dL Calcium 8.5 L (8.7-10.3) mg/dL Microbiology - Last 24 Hours (Table) 08/08/22 19:35 Blood Culture - Preliminary Blood No Growth after 24 hours 08/08/22 19:15 Blood Culture - Preliminary Blood No Growth after 24 hours Assessment and Plan Assessment: Acute ruptured appendicitis with abscess status post laparoscopic cholecystectomy appendectomy Atelectasis Acute hypoxia secondary to the above Postop leukocytosis, reactive History of PONV Hypertension Hyperlipidemia Hypothyroidism Plan: Continue on current medication regime ,monitoring and symptomatic treatment. Maintain antibiotics and IV fluid hydration. Continue close monitoring of blood cultures. Diet advancement, pain management as per primary. Increase ambulation as tolerated . Reinforced aggressive pulmonary toileting with incentive spirometer. Discharge planning in progress for tomorrow as per general surgery. Follow-up with PCP in one week. The impression and plan of care has been dictated as directed. : I performed a history and examination of this patient, discussed the same with the dictator. I agree with the dictator's note ,documented as a scribe. Any additional findings or plans will be noted.
[2022-08-10] MEDS: SODIUM CHLORIDE 0.9% 1,000 ML IV SCH ×2 (17:18→21:03)
[2022-08-10] MEDS: ATORVASTATIN 80 MG TAB PO SCH (20:54)
[2022-08-10] MEDS: LACTATED RINGERS 1,000 ML IV SCH (20:54)
[2022-08-10] MEDS: HYDROcodone/APAP 5-325MG 1 EACH TAB PO PRN (21:01)
[2022-08-11] MEDS: PIPERACILLIN-TAZOBACTAM 3.375 GM in SODIUM CHLORIDE 0.9% 100 ML IVPB SCH ×2 (00:23→07:54)
[2022-08-11] MEDS: HEPARIN SODIUM,PORCINE/PF 5,000 UNIT/0.5 ML SYRINGE SQ SCH ×2 (00:23→07:55)
[2022-08-11] MEDS: metroNIDAZOLE-NS PMX 500 MG in SALINE 1 100ML.BAG IVPB SCH ×2 (04:32→12:37)
[2022-08-11] MEDS: LEVOTHYROXINE 88 MCG TAB PO SCH (06:27)
[2022-08-11] MEDS: HYDROcodone/APAP 5-325MG 1 EACH TAB PO PRN (07:54)
[2022-08-11] MEDS: LOSARTAN 25 MG TAB PO SCH (07:55)
[2022-08-11] MEDS: PROPRANOLOL 40 MG TAB PO SCH (07:55)
[2022-08-11] MEDS: IPRATROPIUM-ALBUTEROL 3 ML NEB INHALATION SCH ×2 (08:35→12:16)
[2022-08-11] MEDS: PANTOPRAZOLE 40 MG/10 ML VIAL IV SCH (08:58)
[2022-08-11 10:48] VITALS: BP 137/84; PULSE 66; RESP 17; TEMP 98
--- NOTE | 2022-08-11 12:16 | P.DS ---
Providers Date of admission: 08/08/22 19:24 Expected date of discharge: 08/11/22 Attending physician: Elliot Walker Consults: 08/08/22 21:46 Consult Physician Routine Consulting Provider: Vitaliy Bassett Jr Consult Reason/Comments: med mgmt Do you want consulting provider notified?: Yes Primary care physician: Vitaliy Bassett [facility] Course: Discharge diagnosis 1. Acute ruptured appendicitis with abscess status post laparoscopic appendectomy 2. Atelectasis Hospital course This is a 61-year-old female who presented with right lower quadrant abdominal pain and decreased appetite. CT shows inflammatory changes in the right lower quadrant adjacent to the mid to distal aspect of the appendix with suspected abscess and air. Patient is status post laparoscopic appendectomy for ruptured appendicitis with abscess. She is tolerating diet. Her pain is controlled. She is up and ambulating. She is having BMs. Afebrile. Incision sites clean dry and intact. She is stable for discharge. Please refer to chart for any further details. Physician French Folding Machine Operator note has been reviewed by physician. Signing provider agrees with the documented findings, assessment, and plan of care. Patient Condition at Discharge: Stable Plan - Discharge Summary Discharge Rx Participant: Yes New Discharge Prescriptions: New Amoxic-Pot Clav 875-125Mg [Augmentin 875-125] 1 tab PO Q12HR 7 Days #14 tab HYDROcodone/APAP 5-325MG [[place] 5-325] 1 tab PO Q6HR PRN 3 Days #12 tab PRN Reason: Pain Continue Propranolol HCl 80 mg PO DAILY Levothyroxine Sodium [Synthroid] 88 mcg PO DAILY Losartan Potassium [Cozaar] 25 mg PO DAILY Atorvastatin Calcium [Lipitor] 80 mg PO HS Discontinued amLODIPine [Norvasc] 5 mg PO DAILY Discharge Medication List Atorvastatin Calcium [Lipitor] 80 mg PO HS 08/08/22 [History] Levothyroxine Sodium [Synthroid] 88 mcg PO DAILY 08/08/22 [History] Losartan Potassium [Cozaar] 25 mg PO DAILY 08/08/22 [History] Propranolol HCl 80 mg PO DAILY 08/08/22 [History] Amoxic-Pot Clav 875-125Mg [Augmentin 875-125] 1 tab PO Q12HR 7 Days #14 tab 08/11/22 [Rx] HYDROcodone/APAP 5-325MG [[place] 5-325] 1 tab PO Q6HR PRN 3 Days #12 tab 08/11/22 [Rx] Follow up Appointment(s)/Referral(s): Vitaliy Bassett Jr, [Primary Care Provider] - 1 Week Elliot Walker MD [Medical Doctor] - 2 Weeks Patient Instructions/Handouts: Laparoscopic Appendectomy (DC) Activity/Diet/Wound Care/Special Instructions: No driving while taking [place] No lifting over 10 pounds You may shower. No soaking or tub baths for 2 weeks Very light activity until you are reevaluated at your follow up appointment with your surgeon Discharge Disposition: HOME SELF-CARE
== END 2022-08-11 14:07 | disposition home or self-care (01) | DRG 339 ==
LOC: EC 14:34 → 4SSUR 19:24
PROVIDERS: ADMIT Surgery; ATTEND Surgery
PROC: 0DTJ4ZZ Resection of Appendix, Percutaneous Endoscopic Approach (ICD-10-PCS; principal; 2022-08-08 19:32)
DX: K35.33 Acute appendicitis with perforation, localized peritonitis, and gangrene, with abscess (principal); J98.11 Atelectasis; I10 Essential (primary) hypertension; E03.9 Hypothyroidism, unspecified; D72.828 Other elevated white blood cell count; E78.5 Hyperlipidemia, unspecified; R09.02 Hypoxemia; N80.8 Other endometriosis; Z20.822 Contact with and (suspected) exposure to COVID-19; Z28.310 Unvaccinated for COVID-19; Z79.899 Other long term (current) drug therapy; Z79.890 Hormone replacement therapy; Z88.2 Allergy status to sulfonamides; Z88.5 Allergy status to narcotic agent; Z87.891 Personal history of nicotine dependence
CPT/HCPCS: 36415; 71046; 74177; 80048; 80053; 81001; 82150; 83690; 85025; 87040; 87502; 87635; 88304; 94640; 94760; 96365; 96375; 99285

== ENCOUNTER → 2022-10-23 | Outpatient (CLI) | payer BC ==
--- NOTE | 2022-10-24 08:34 | MM ---
Reason for Exam: Screening (asymptomatic). Last screening mammogram was performed 12 month(s) ago. Patient History: Menarche at age 9. First Full-Term at age 26. Left ovary removed at age 50. Right ovary removed at age 50. Hysterectomy at age 50. Postmenopausal. Patient used Hormonal Contraceptives for 20 years. Risk Values: Daya 5 year model risk: 1.9%. NCI Lifetime model risk: 8.1%. Prior Study Comparison: 08/22/2019 Screening Mammogram, [place]. 08/30/2020 Screening Mammogram, [place]. 10/19/2021 Bilateral Screening Mammogram, [facility]. Tissue Density: There are scattered fibroglandular densities. Findings: Analyzed By CAD. Asymmetric density upper outer right breast zone B. Additional views are recommended. No suspicious calcifications present. Overall Assessment: Incomplete: need additional imaging evaluation, BI-RAD 0 Management: Diagnostic Mammogram of the right breast. A clinical breast exam by your physician is recommended on an annual basis and results should be correlated with mammographic findings. Electronically signed and approved by: Damion Denton M.D. Radiologis
== END | disposition home or self-care (01) ==
LOC: RADMAMWWP 08:30
PROVIDERS: ATTEND Family Medicine
DX: Z12.31 Encounter for screening mammogram for malignant neoplasm of breast (principal); Z78.0 Asymptomatic menopausal state
CPT/HCPCS: 77067

== ENCOUNTER → 2022-10-25 | Outpatient (CLI) | payer BC ==
--- NOTE | 2022-10-25 14:06 | MM ---
Reason for Exam: Additional evaluation requested from abnormal screening. Last screening mammogram was performed less than 1 month ago. Patient History: Menarche at age 9. First Full-Term at age 26. Left ovary removed at age 50. Right ovary removed at age 50. Hysterectomy at age 50. Postmenopausal. Patient used Hormonal Contraceptives for 20 years. Risk Values: Daya 5 year model risk: 1.9%. NCI Lifetime model risk: 8.1%. Prior Study Comparison: 08/30/2020 Screening Mammogram, [place]. 10/19/2021 Bilateral Screening Mammogram, [facility]. 10/23/2022 Bilateral MG screening mammo w CAD, [facility]. Tissue Density: Right: The breast tissue is heterogeneously dense. This may lower the sensitivity of mammography. Findings: Analyzed By CAD. Asymmetric density in the upper-outer right breast zone B still partially persists on compression. Overall Assessment: Incomplete: need additional imaging evaluation, BI-RAD 0 Management: Diagnostic Breast Ultrasound of the right breast. A clinical breast exam by your physician is recommended on an annual basis and results should be correlated with mammographic findings. This exam should not preclude additional follow-up of suspicious palpable abnormalities. Results were given to the patient verbally at the time of exam. Electronically signed and approved by: Luis Guerra D.O.
--- NOTE | 2022-10-25 14:25 | USB ---
Reason for Exam: Additional evaluation requested from abnormal screening. Patient History: Menarche at age 9. First Full-Term at age 26. Left ovary removed at age 50. Right ovary removed at age 50. Hysterectomy at age 50. Postmenopausal. Patient used Hormonal Contraceptives for 20 years. Risk Values: Daya 5 year model risk: 1.9%. NCI Lifetime model risk: 8.1%. Technique: Method: Targeted. Prior Study Comparison: 08/30/2020 Screening Mammogram, [place]. 10/19/2021 Bilateral Screening Mammogram, [facility]. 10/23/2022 Bilateral MG screening mammo w [facility], [facility]. Findings: The upper outer quadrant of the right breast, the axilla of the right breast and the retroareolar of the right breast were scanned. Targeted ultrasound of the upper outer quadrant of the right breast was performed with additional evaluation nipple and axilla. There is a anechoic cluster of cysts versus prominent ducts demonstrated within the right breast 9:00 6 cm from the nipple measuring 1.8 x 0.5 x 0.8 cm without internal color flow. Overall Assessment: Probably benign, BI-RAD 3 Management: Diagnostic Breast Ultrasound of the right breast in 6 months. A clinical breast exam by your physician is recommended on an annual basis and results should be correlated with mammographic findings. This exam should not preclude additional follow-up of suspicious palpable abnormalities. Results were given to the patient verbally at the time of exam. Electronically signed and approved by: Luis Guerra D.O.
== END | disposition home or self-care (01) ==
LOC: RADMAMWWP 13:12
PROVIDERS: ATTEND Family Medicine
DX: R92.8 Other abnormal and inconclusive findings on diagnostic imaging of breast (principal); Z78.0 Asymptomatic menopausal state
CPT/HCPCS: 77065

== ENCOUNTER → 2023-03-27 | Outpatient (CLI) | payer BC ==
--- NOTE | 2023-03-27 09:41 | USB ---
Reason for Exam: Follow-up at short interval from prior study. Patient History: Menarche at age 9. First Full-Term at age 26. Left ovary removed at age 50. Right ovary removed at age 50. Hysterectomy at age 50. Postmenopausal. Patient used Hormonal Contraceptives for 20 years. Risk Values: Daya 5 year model risk: 1.9%. NCI Lifetime model risk: 8.1%. Technique: Method: Targeted. Prior Study Comparison: 10/19/2021 Bilateral Screening Mammogram, [facility]. 10/23/2022 Bilateral MG screening mammo w CAD, [facility]. 10/25/2022 Right MG work up mamm w CAD RT, [facility]. Findings: The upper outer quadrant of the right breast, the axilla of the right breast and the retroareolar of the right breast were scanned. Imaged: Ultrasound imaging of: Area of concern, retroareolar region and axilla. No evidence for organizing fluid collection or mass. Findings seen on prior is not currently visualized. Overall Assessment: Negative, BI-RAD 1 Management: Screening Mammogram of both breasts in 1 year. No finding to correlate with prior ultrasound. Back to screening. A clinical breast exam by your physician is recommended on an annual basis and results should be correlated with mammographic findings. This exam should not preclude additional follow-up of suspicious palpable abnormalities. Results were given to the patient verbally at the time of exam. Electronically signed and approved by: Sonu Browning DO
== END | disposition home or self-care (01) ==
LOC: RADUSWWP 08:49
PROVIDERS: ATTEND Family Medicine
DX: N60.11 Diffuse cystic mastopathy of right breast (principal); Z78.0 Asymptomatic menopausal state

== ENCOUNTER → 2023-10-29 | Outpatient (CLI) | payer BC ==
--- NOTE | 2023-10-30 20:44 | MM ---
Reason for Exam: Screening (asymptomatic). Last screening mammogram was performed 12 month(s) ago. Patient History: Menarche at age 9. First Full-Term at age 26. Left ovary removed at age 50. Right ovary removed at age 50. Hysterectomy at age 50. Postmenopausal. Patient used Hormonal Contraceptives for 20 years. Risk Values: Daya 5 year model risk: 2.0%. NCI Lifetime model risk: 7.9%. Prior Study Comparison: 10/19/2021 Bilateral Screening Mammogram, [facility]. 10/23/2022 Bilateral MG screening mammo w CAD, [place]. 10/25/2022 Right MG work up mamm w CAD RT, [facility]. Tissue Density: There are scattered fibroglandular densities. Findings: Analyzed By CAD. There is no suspicious group of microcalcifications or new suspicious mass in either breast. Overall Assessment: Negative, BI-RAD 1 Management: Screening Mammogram of both breasts in 1 year. . Patient should continue monthly self-breast exams. A clinical breast exam by your physician is recommended on an annual basis. This exam should not preclude additional follow-up of suspicious palpable abnormalities. Note on Daya scores and lifetime risk: 1. A Daya score greater than 3% is considered moderate risk. If this is the case, consider specialist referral to assess eligibility for a risk reducing agent. 2. If overall lifetime risk for the development of breast cancer is 20% or higher, the patient may qualify for future screening with alternating mammogram and breast MRI. Electronically signed and approved by: Deacon Farrar M.D. Radiologist
== END | disposition home or self-care (01) ==
LOC: RADMAMWWP 15:02
PROVIDERS: ATTEND Family Medicine
DX: Z12.31 Encounter for screening mammogram for malignant neoplasm of breast (principal); Z78.0 Asymptomatic menopausal state
CPT/HCPCS: 77063; 77067

== ENCOUNTER → 2024-12-25 | Outpatient (CLI) | payer MEDICARE ==
--- NOTE | 2024-12-25 13:50 | MM ---
Reason for Exam: Screening (asymptomatic). Last mammogram was performed 1 year(s) and 2 month(s) ago. Patient History: Menarche at age 9. First Full-Term at age 26. Left ovary removed at age 50. Right ovary removed at age 50. Hysterectomy at age 50. Postmenopausal. Patient used Hormonal Contraceptives for 20 years. Risk Values: Daya 5 year model risk: 2.0%. NCI Lifetime model risk: 7.6%. Prior Study Comparison: 10/23/2022 Bilateral MG screening mammo w CAD, [facility]. 10/25/2022 Right MG work up mamm w CAD RT, [facility]. 10/29/2023 Bilateral MG 3D screening mammo w/cad, [facility]. Tissue Density: The breasts are heterogeneously dense, which may obscure small masses. Findings: Analyzed By CAD. There is a 5 mm nodule in the upper outer margin of the left breast 3 mm nodule seen on the MLO view adjacent. Recommend spot compression view. Benign-appearing calcifications. Overall Assessment: Benign, BI-RAD 2 Management: Special View Mammogram of the left breast. . Patient should continue monthly self-breast exams. A clinical breast exam by your physician is recommended on an annual basis. This exam should not preclude additional follow-up of suspicious palpable abnormalities. Note on Daya scores and lifetime risk: 1. A Daya score greater than 3% is considered moderate risk. If this is the case, consider specialist referral to assess eligibility for a risk reducing agent. 2. If overall lifetime risk for the development of breast cancer is 20% or higher, the patient may qualify for future screening with alternating mammogram and breast MRI. [facility], , 12/25/2024 1:47 PM. Electronically signed and approved by: Donaldo Tapia M.D. Radiologis
--- NOTE | 2024-12-25 15:27 | BD ---
EXAMINATION TYPE: Axial Bone Density DATE OF EXAM: 12/25/2024 CLINICAL HISTORY: 64 years old Female. ICD-10 CODE: Z78.0 ASYMP [place] , Additional History: Height: 62 Weight: 170.7 FRAX RISK QUESTIONS: Alcohol (3 or more units per day): no Family History (Parent hip fracture): no Glucocorticoids (More than 3mos): no (Ex: prednisone, prednisolone, methylprednisolone, dexamethasone, and hydrocortisone). History of Fracture in Adulthood: no Secondary Osteoporosis: 1. Type 1 Diabetes: no 2. Hyperthyroidism: no 3. Menopause before 45: yes 4. Malnutrition: no 5. Chronic liver disease: no Rheumatoid Arthritis: no Current Tobacco Use: no RISK FACTORS HISTORY OF: History of Wrist Fracture: not sure which side When: age 4 Surgery to Spine/Hip(right/left)/Wrist (right/left): no MEDICATIONS: Thyroid Medications: levothyroxine How Long: long time EXAM MEASUREMENTS: Bone mineral densitometry was performed using the [employer] System. Bone mineral density as measured about the Lumbar spine is: ----- L1-L4(G/cm2): 1.340 T Score Values are as follows: ----- L1: -1.2 ----- L2: 2.4 ----- L3: 3.0 ----- L4: 0.7 ----- L1-L4: 1.3 Z Score Values are as follows: ----- L1: 0.0 ----- L2: 3.5 ----- L3: 4.2 ----- L4: 1.9 ----- L1-L4: 2.5 Bone mineral density : baseline Bone mineral density about the R hip (g/cm2): 1.045 Bone mineral density about the L hip (g/cm2): 1.024 T Score values are as follows: -----R Neck: -1.0 -----L Neck: -1.3 -----R Total: 0.3 -----L Total: 0.1 Z Score values are as follows: -----R Neck: 0.2 -----L Neck: -0.1 -----R Total: 1.2 -----L Total: 1.0 Bone mineral density : baseline FRAX%s: The graph provided illustrates a 8.1% chance for a major osteoporotic fx and a 0.7% chance fo r the hips probability for fx in 10 years time. IMPRESSION: Normal (Values between +1 and -1 indicate normal bone mass). Consider repeating this study in 5 year s or sooner if there is some new clinical indication. NOTE: T-SCORE=SD OF THE YOUNG ADULT MEAN. [facility], , 12/25/2024 3:25 PM
== END | disposition home or self-care (01) ==
LOC: RADMAMWWP 13:31
PROVIDERS: ATTEND Family Medicine
DX: Z12.31 Encounter for screening mammogram for malignant neoplasm of breast (principal); R92.333 Mammographic heterogeneous density, bilateral breasts; M85.89 Other specified disorders of bone density and structure, multiple sites; Z78.0 Asymptomatic menopausal state; Z92.0 Personal history of contraception
CPT/HCPCS: 77063; 77067; 77080

== ENCOUNTER → 2025-01-01 | Outpatient (CLI) | payer MEDICARE ==
--- NOTE | 2025-01-01 13:28 | MM ---
Reason for Exam: Additional evaluation requested from abnormal screening. Last screening mammogram was performed less than 1 month ago. Patient History: Menarche at age 9. First Full-Term at age 26. Left ovary removed at age 50. Right ovary removed at age 50. Hysterectomy at age 50. Postmenopausal. Patient used Hormonal Contraceptives for 20 years. Risk Values: Daya 5 year model risk: 2.0%. NCI Lifetime model risk: 7.6%. Prior Study Comparison: 10/25/2022 Right MG work up mamm w CAD RT, [facility]. 10/29/2023 Bilateral MG 3D screening mammo w/cad, [facility]. 12/25/2024 Bilateral MG 3D screening mammo w/cad, [facility]. Tissue Density: Left: The breasts are heterogeneously dense, which may obscure small masses. Findings: Analyzed By CAD. Nodularity persists upper outer left breast 6 cm from the nipple measuring 6 mm. Ultrasound recommended. Overall Assessment: Incomplete: need additional imaging evaluation, BI-RAD 0 Management: Diagnostic Breast Ultrasound of the left breast. . Results were given to the patient verbally at the time of exam. Patient should continue monthly self-breast exams. A clinical breast exam by your physician is recommended on an annual basis. This exam should not preclude additional follow-up of suspicious palpable abnormalities. Note on Daya scores and lifetime risk: 1. A Daya score greater than 3% is considered moderate risk. If this is the case, consider specialist referral to assess eligibility for a risk reducing agent. 2. If overall lifetime risk for the development of breast cancer is 20% or higher, the patient may qualify for future screening with alternating mammogram and breast MRI. [facility], , 01/01/2025 1:25 PM. Electronically signed and approved by: Damion Denton M.D. Radiologis
--- NOTE | 2025-01-01 13:59 | USB ---
Reason for Exam: Additional evaluation requested from abnormal screening. Patient History: Menarche at age 9. First Full-Term at age 26. Left ovary removed at age 50. Right ovary removed at age 50. Hysterectomy at age 50. Postmenopausal. Patient used Hormonal Contraceptives for 20 years. Risk Values: Daya 5 year model risk: 2.0%. NCI Lifetime model risk: 7.6%. Technique: Method: Targeted. Prior Study Comparison: 10/25/2022 Right MG work up mamm w CAD RT, [facility]. 10/29/2023 Bilateral MG 3D screening mammo w/cad, [facility]. 12/25/2024 Bilateral MG 3D screening mammo w/cad, [facility]. Findings: The upper outer quadrant of the left breast, the axilla of the left breast and the retroareolar of the left breast were scanned. A complete US of all four quadrants of the breast and retro-areolar region were reviewed. No solid or cystic masses are identified.. Overall Assessment: Probably benign, BI-RAD 3 Management: Diagnostic Mammogram of the left breast in 6 months. A clinical breast exam by your physician is recommended on an annual basis and results should be correlated with mammographic findings. This exam should not preclude additional follow-up of suspicious palpable abnormalities. Results were given to the patient verbally at the time of exam. [facility], , 01/01/2025 1:56 PM. Electronically signed and approved by: Damion Denton M.D. Radiologis
== END | disposition home or self-care (01) ==
LOC: RADMAMWWP 13:00
PROVIDERS: ATTEND Family Medicine
DX: R92.8 Other abnormal and inconclusive findings on diagnostic imaging of breast (principal); R92.332 Mammographic heterogeneous density, left breast; Z78.0 Asymptomatic menopausal state; Z92.0 Personal history of contraception
CPT/HCPCS: 77065; 76642; G0279; 77061

== ENCOUNTER 2025-01-13 08:06 | Day surgery (SDC) | payer MEDICARE ==
[2025-01-13 08:30] VITALS: TEMP 96.5
[2025-01-13] MEDS: IV FLUID CONTINUATION 1,000 ML IV ONE (08:33)
[2025-01-13] MEDS: LACTATED RINGERS 1,000 ML IV SCH (08:34)
[2025-01-13] MEDS: LIDOCAINE 1% (10MG/ML) FOR IV START INTRADERMA PRN (08:34)
[2025-01-13] MEDS: ONDANSETRON 4 MG/2 ML VIAL IVP STA (08:45)
[2025-01-13 08:51] LABS: Glucose,Whole Blood 149 mg/dL (70-110)
[2025-01-13] MEDS ORDERED: PROPOFOL 10 MG/ML 20 ML VIAL IV ONE (08:59)
--- NOTE | 2025-01-13 09:01 | P.GSHP ---
History of Present Illness H&P Date: 01/13/25 Chief Complaint: Screening with personal history of colon polyps 64-year-old female here for colonoscopy. Last colonoscopy 5 years ago. Says she had a few polyps. No bowel complaints. No family history of colon cancer. Past Medical History Past Medical History: Hyperlipidemia, Hypertension, Thyroid Disorder Additional Past Medical History / Comment(s): "borderline" diabetic History of Any Multi-Drug Resistant Organisms: None Reported Past Surgical History: Appendectomy, Cholecystectomy, Hysterectomy, Tonsillectomy Past Anesthesia/Blood Transfusion Reactions: Previous Problems w/ Anesthesia, Family History of Problems w/ Anesthesia, Postoperative Nausea & Vomiting (PONV) Additional Past Anesthesia/Blood Transfusion Reaction / Comment(s): pt states hard time waking up out of anesthesia & PONV; dad also had hard time with anesthesia Smoking Status: Former smoker Medications and Allergies Home Medications Medication Instructions Recorded Confirmed Type Levothyroxine Sodium [Synthroid] 100 mcg PO DAILY 08/08/22 01/09/25 History Losartan Potassium [Cozaar] 25 mg PO DAILY 08/08/22 01/09/25 History Chlorthalidone 25 mg PO DAILY 01/09/25 01/09/25 History Cholecalciferol (Vitamin D3) 125 mcg PO DAILY 01/09/25 01/09/25 History [Vitamin D3 (125 MCG = 5,000 IU)] Metoprolol Succinate (ER) [Toprol 50 mg PO DAILY 01/09/25 01/09/25 History Xl] Phentermine HCl [Adipex-P] 37.5 mg PO DAILY 01/09/25 01/09/25 History Pravastatin Sodium [Pravachol] 80 mg PO HS 01/09/25 01/09/25 History amLODIPine [Norvasc] 5 mg PO DAILY 01/09/25 01/09/25 History Allergies Allergy/AdvReac Type Severity Reaction Status Date / Time doxycycline Allergy Nausea, Verified 01/09/25 15:11 dizzy, vertigo Sulfa (Sulfonamide Allergy Rash/Hives Verified 01/09/25 15:10 Antibiotics) morphine AdvReac Nausea & Verified 01/09/25 15:10 Vomiting Surgical - Exam Vital Signs Temp Pulse Resp BP Pulse Ox 96.5 F L 72 16 125/82 94 L 01/13/25 08:28 01/13/25 08:28 01/13/25 08:28 01/13/25 08:28 01/13/25 08:28 Physical exam: General: Well-developed, well-nourished HEENT: Normocephalic, sclerae nonicteric Abdomen: Nontender, nondistended Extremities: No edema Neuro: Alert and oriented Results - Labs Abnormal Lab Results - Last 24 Hours (Table) 01/13/25 Range/Units 08:40 POC Glucose (mg/dL) 149 H (70-110) mg/dL Assessment and Plan (1) Colon cancer screening Narrative/Plan: Will proceed with colonoscopy at this time. Current Visit: Yes Status: Acute Code(s): Z12.11 - ENCOUNTER FOR SCREENING FOR MALIGNANT NEOPLASM OF COLON SNOMED Code(s): 728096229
--- NOTE | 2025-01-13 09:23 | P.PCN ---
Date of Procedure: 01/13/25 Procedure(s) Performed: PREOPERATIVE DIAGNOSIS: Colon cancer screening with personal history of polyps POSTOPERATIVE DIAGNOSIS: Diverticulosis PROCEDURE: Colonoscopy ANESTHESIA: MAC SURGEON: Elliot Walker M.D. SPECIMENS: None ENDOSCOPIC PROCEDURE: The patient was placed on the endoscopy table in the left decubitus position. The Olympus colonoscope was inserted into the anus and passed under direct visualization to the base of the cecum. The appendiceal orifice was visualized. From that point the scope was slowly withdrawn inspecting all surfaces carefully. There were no neoplastic inflammatory or polypoid lesions throughout the cecum, ascending, transverse, descending, sigmoid and rectum. There was mild diverticulosis noted. Digital rectal examination was normal. The patient was taken to the recovery room in stable condition per anesthesia guidelines. RECOMMENDATIONS: Resume diet. Repeat colonoscopy 5 to 7 years given the history of previous colon polyps.
[2025-01-13 09:41] VITALS: BP 103/67; PULSE 70; RESP 16
== END 2025-01-13 10:09 | disposition home or self-care (01) ==
LOC: ORWHC2ENDO 08:06
PROVIDERS: ATTEND Surgery
DX: Z12.11 Encounter for screening for malignant neoplasm of colon (principal); K57.30 Diverticulosis of large intestine without perforation or abscess without bleeding; I10 Essential (primary) hypertension; E78.5 Hyperlipidemia, unspecified; E03.9 Hypothyroidism, unspecified; Z91.89 Other specified personal risk factors, not elsewhere classified; Z79.890 Hormone replacement therapy; Z79.84 Long term (current) use of oral hypoglycemic drugs; Z79.899 Other long term (current) drug therapy; Z87.891 Personal history of nicotine dependence; Z86.0100 Personal history of colon polyps, unspecified; Z88.1 Allergy status to other antibiotic agents; Z88.2 Allergy status to sulfonamides; Z88.5 Allergy status to narcotic agent
CPT/HCPCS: G0121; J2405; J2704